=== PATIENT | male | born 1990 | race Caucasian/White ===

== ENCOUNTER 2016-12-31 00:20 | Emergency (ER) | payer BC ==
[~2016-12-31] VITALS: Ht 177.8 cm; Wt 64.5 kg
[2016-12-31 00:24] VITALS: Ht 177.8 cm; Wt 64.5 kg
[2016-12-31] MEDS ORDERED: morphine 4 MG/ML VIAL IV STA (00:43)
[2016-12-31] MEDS ORDERED: SOD CHLORIDE 0.9% 1,000 ML IV STA (00:43)
[2016-12-31] MEDS ORDERED: ONDANSETRON 4 MG INJ IV STA (00:43)
[2016-12-31] MEDS ORDERED: KETOROLAC 30 MG INJ IV STA (00:43)
[2016-12-31 01:30] VITALS: TEMP 98
[2016-12-31] MEDS ORDERED: NAPR-688 PO (01:34)
[2016-12-31] MEDS ORDERED: ONDA4TAB14 PO (01:34)
[2016-12-31] MEDS ORDERED: DIPH1TAB PO (01:34)
--- NOTE | 2016-12-31 01:39 | ERD ---
ER Documentation Chief Complaint Date/Time DATE: 12/31/16 TIME: 01:36 Chief Complaint mid abd pain w/ diarrhea,vomiting x 3 days HPI This 26-year-old male presents emergency room for 3 days of crampy abdominal pain accompanied with copious watery diarrhea with no bleeding, had nausea and some vomiting early on. Currently does not have nausea but has had it today. Denies any sick contacts and has not traveled out of the country recently. Fevers or chills. Does feel lightheaded and tired. ROS All systems reviewed and are negative except as per history of present illness. Medications Home Meds Active Scripts Ondansetron (Ondansetron Odt) 4 Mg Tab.rapdis, 4 MG PO Q6H Y for NAUSEA AND/OR VOMITING, #10 TAB Prov:SARAH REYES DO 12/31/16 Naproxen* (Naproxen*) 500 Mg Tablet, 500 MG PO BID Y for PAIN, #10 TAB Prov:SARAH REYES DO 12/31/16 Diphenoxylate HCl/Atropine (Lomotil 2.5-0.025 mg Tablet) 1 Each Tablet, 1 TAB PO Q6H Y for DIARRHEA, #10 TAB Prov:ERICSARAH DO 12/31/16 Allergies Allergies: Coded Allergies: No Known Allergy (Unverified , 12/31/16) PMhx/Soc Medical and Surgical Hx: pt denies Medical Hx, pt denies Surgical Hx Hx Alcohol Use: Yes (3x/wk) Hx Substance Use: Yes (MJ) Hx Tobacco Use: Yes (cigar-ettes) Smoking Status: Current every day smoker Physical Exam Vitals Vital Signs Date Time Temp Pulse Resp B/P Pulse Ox O2 Delivery O2 Flow Rate FiO2 12/31/16 00:24 99.5 86 20 108/65 99 Physical Exam Const: [] Mild distress Head: Atraumatic Eyes: Normal Conjunctiva Resp: Clear to auscultation bilaterally Cardio: Regular rate and rhythm, no murmurs Abd: Soft, mild diffuse tenderness without guarding or rebound, non distended. Normal bowel sounds Skin: No petechiae or rashes Neur: Awake and alert 3, no focal deficits Results 24 hrs Current Medications Medications (Trade) Dose Ordered Sig/Selin Route PRN Reason Start Time Stop Time Status Last Admin Dose Admin Sodium Chloride (NS) 1,000 ml @ 1,000 mls/hr Q1H STAT IV 12/31/16 00:43 12/31/16 01:42 12/31/16 00:55 Morphine Sulfate (morphine) 4 mg ONCE STAT IV 12/31/16 00:43 12/31/16 00:47 DC 12/31/16 00:58 Ondansetron HCl (Zofran Inj) 4 mg ONCE STAT IV 12/31/16 00:43 12/31/16 00:47 DC 12/31/16 00:57 Ketorolac Tromethamine (Toradol) 30 mg ONCE STAT IV 12/31/16 00:43 12/31/16 00:47 DC 12/31/16 00:57 Procedures/MDM Likely viral gastroenteritis. Patient was given a liter of normal saline emergency room is along with morphine, Zofran and Toradol. Reported feeling much better. I am going to discharge with a motility, naproxen and Zofran. Return precautions to the ER and primary care follow-up given. Very low suspicion for appendicitis, AAA rupture, pyelonephritis. Departure Diagnosis: Primary Impression: Gastroenteritis Condition: Stable Patient Instructions: Gastroenteritis, Viral (6Y-Adult) Referrals: [facility] YOU HAVE RECEIVED A MEDICAL SCREENING EXAM AND THE RESULTS INDICATE THAT YOU DO NOT HAVE A CONDITION THAT REQUIRES URGENT TREATMENT IN THE EMERGENCY DEPARTMENT. FURTHER EVALUATION AND TREATMENT OF YOUR CONDITION CAN WAIT UNTIL YOU ARE SEEN IN YOUR DOCTORS OFFICE WITHIN THE NEXT 1-2 DAYS. IT IS YOUR RESPONSIBILITY TO MAKE AN APPOINTMENT FOR FOLOW-UP CARE. IF YOU HAVE A PRIMARY DOCTOR --you should call your primary doctor and schedule an appointment IF YOU DO NOT HAVE A PRIMARY DOCTOR YOU CAN CALL OUR PHYSICIAN REFERRAL HOTLINE AT IF YOU CAN NOT AFFORD TO SEE A PHYSICIAN YOU CAN CHOSE FROM THE FOLLOWING [facility] [address] [facility]. [facility] [address] [facility] [address] [facility]. [facility] [address] [facility]. [facility] [address] [facility]. [facility]. [address] Additional Instructions: Call your primary care doctor TOMORROW for an appointment during the next 2-3 days.See the doctor sooner or return here if your condition worsens before your appointment time. SARAH REYES DO Dec 31, 2016 01:39
[2016-12-31 02:21] VITALS: BP 110/70; PULSE 71; RESP 18
== END 2016-12-31 02:25 | disposition home or self-care (01) ==
LOC: E/R 00:20
DX: K52.9 Noninfective gastroenteritis and colitis, unspecified (principal); F17.210 Nicotine dependence, cigarettes, uncomplicated
CPT/HCPCS: 96361; 96374; 96375; 99284; J1885; J2270; J2405; J7030

== ENCOUNTER 2017-03-23 01:32 | Emergency (ER) | payer SELFPAY ==
[~2017-03-23] VITALS: Ht 177.8 cm; Wt 62.8 kg
[~2017-03-23 01:32] MED LIST: DIPH1TAB PO; NAPR-688 PO; ONDA4TAB14 PO
[2017-03-23 02:02] VITALS: Ht 177.8 cm; Wt 62.8 kg
== END 2017-03-23 02:11 | disposition left against medical advice (07) ==
LOC: E/R 01:32
DX: Z53.21 Procedure and treatment not carried out due to patient leaving prior to being seen by health care provider (principal)

== ENCOUNTER 2018-04-22 15:16 | Emergency (ER) | payer SELFPAY ==
[~2018-04-22] VITALS: Ht 165.1 cm; Wt 64.4 kg
[2018-04-22 15:31] VITALS: Ht 165.1 cm; Wt 64.4 kg
[2018-04-22] MEDS ORDERED: ACETAMINOPHEN 325 MG TAB PO ONE (18:30)
[2018-04-22] MEDS ORDERED: PROMETHAZINE/CODEINE 5ML CUP PO ONE (18:30)
[2018-04-22] MEDS ORDERED: AZIT250T PO (18:37)
[2018-04-22] MEDS ORDERED: IBUP-1542 PO (18:37)
[2018-04-22] MEDS ORDERED: D-ME473S2 PO (18:37)
--- NOTE | 2018-04-22 18:38 | ERD ---
ER Documentation Chief Complaint Chief Complaint Complains of fever and cough x 2 days HPI 27-year-old male presents with fever and cough for the last 2 days. Fevers for 2 days although has had a cough for a week. He has productive mucus. Denies chest pain, vomiting, abdominal pain. ROS All systems reviewed and are negative except as per history of present illness. Medications Home Meds Active Scripts Azithromycin* (Zithromax*) 250 Mg Tablet, 250 MG PO .ZPACK DIRECTED, #6 TAB TAKE 500 MG (2 TABS) THE FIRST DAY THEN 250 MG (1 TAB) DAYS 2-5 Prov:LARON MUHAMMAD MD 04/22/18 Ibuprofen* (Motrin*) 600 Mg Tab, 600 MG PO Q6, #15 TAB Prov:LARON MUHAMMAD MD 04/22/18 Dextromethorphan Hb-Promethazine Hcl* (Promethazine DM* Syrup) 473 Ml Syrup, 5 ML PO Q6 PRN for COUGH for 5 Days, ML Prov:LARON MUHAMMAD MD 04/22/18 Ondansetron (Ondansetron Odt) 4 Mg Tab.rapdis, 4 MG PO Q6H PRN for NAUSEA AND/OR VOMITING, #10 TAB Prov:SARAH REYES DO 12/31/16 Naproxen* (Naproxen*) 500 Mg Tablet, 500 MG PO BID PRN for PAIN, #10 TAB Prov:SARAH REYES DO 12/31/16 Diphenoxylate HCl/Atropine (Lomotil 2.5-0.025 mg Tablet) 1 Each Tablet, 1 TAB PO Q6H PRN for DIARRHEA, #10 TAB Prov:SARAH REYES DO 12/31/16 Allergies Allergies: Coded Allergies: No Known Allergy (Unverified , 12/31/16) PMhx/Soc Medical and Surgical Hx: pt denies Medical Hx, pt denies Surgical Hx Hx Alcohol Use: Yes (3x/wk) Hx Substance Use: Yes (MJ) Hx Tobacco Use: Yes (cigar-ettes) Smoking Status: Former smoker Physical Exam Vitals Vital Signs Date Temp Pulse Resp B/P (MAP) Pulse Ox O2 O2 Flow FiO2 Time Delivery Rate 04/22/18 100.3 18:07 04/22/18 100.5 105 20 114/71 97 15:31 (85) Physical Exam Const: No acute distress Head: Atraumatic Eyes: Normal Conjunctiva ENT: Normal External Ears, Nose and Mouth. TMs normal and oropharynx normal. Neck: Full range of motion. No meningismus. Resp: Clear to auscultation bilaterally. Rhonchi without rales, wheezing or retractions. Cardio: Regular rate and rhythm, no murmurs Abd: Soft, non tender, non distended. Normal bowel sounds Skin: No petechiae or rashes Back: No midline or flank tenderness Ext: No cyanosis, or edema Neur: Awake and alert Psych: Normal Mood and Affect Results 24 hrs Current Medications Medications Dose Sig/Selin Start Time Status Last (Trade) Ordered Route PRN Stop Time Admin Dose Reason Admin 650 mg ONCE ONCE 04/22/18 DC 04/22/18 Acetaminophen PO 18:30 18:07 (Tylenol 04/22/18 18:31 Tab) Promethazine 10 ml ONCE ONCE 04/22/18 DC 04/22/18 HCl/ PO 18:30 18:07 Codeine 04/22/18 18:31 (Phenergan/ Codeine) Procedures/MDM Patient presents with fever and URI symptoms worsening over the last week. Productive cough. He has no complaints of chest pain or abdominal pain. Chest X-ray 1V Interpreted by me: Soft Tissue: No acute abnormalities Bones: No acute abnormalities Mediastinum/Cardiac Silhouette/Lungs: No acute abnormalities impression-normal 1 view chest x-ray Patient presents with signs and symptoms of acute URI. Given her worsening productive cough for last week with new fevers we will treat empirically with Zithromax, promethazine, ibuprofen, primary care follow-up and return precautions. The patient was stable with no new complaints during the ER course. Clinically, there is no current evidence to suggest meningitis, sepsis, acute abdomen, pneumonia, stroke, acute coronary syndrome, pulmonary embolism, aortic dissection or any other emergent condition appearing to require further evaluation or hospitalization. Patient counseled regarding my diagnostic impression and care plan. Prior to discharge all questions answered. Pt agrees with treatment plan and understands strict return precautions. Pt is instructed to follow up with primary care provider within 24-48 hours. Precautionary instructions provided including instructions to return to the ER if not improving or for any worsening or changing symptoms or concerns. Departure Diagnosis: Primary Impression: Cough Additional Impression: Fever Fever type: unspecified Qualified Codes: R50.9 - Fever, unspecified Condition: Stable Patient Instructions: Bronchitis, Antiobiotic Treatment (Adult), Fever Control (Adult) Additional Instructions: X-ray read as normal. Recheck for new or worsening symptoms with primary care doctor. LARON MUHAMMAD MD Apr 22, 2018 18:38
[2018-04-22 18:59] VITALS: BP 114/71; PULSE 78; RESP 20
== END 2018-04-22 19:00 | disposition home or self-care (01) ==
LOC: FTE 15:16
DX: R05 Cough (principal); Z87.891 Personal history of nicotine dependence
CPT/HCPCS: 71045